=== PATIENT | male | born 1960 | race Caucasian/White ===

== ENCOUNTER 2017-08-27 11:35 | Outpatient (CLI) | payer OTHER ==
[~2017-08-27 11:35] MED LIST: CIPRO500 MG/5 M PO; MOTRIN600 MG PO
== END 2017-08-27 11:48 | disposition home or self-care (01) ==
LOC: LAB 11:35
DX: R21 Rash and other nonspecific skin eruption (principal); Z13.0 Encounter for screening for diseases of the blood and blood-forming organs and certain disorders involving the immune mechanism; Z13.1 Encounter for screening for diabetes mellitus; Z13.29 Encounter for screening for other suspected endocrine disorder; Z12.5 Encounter for screening for malignant neoplasm of prostate; Z12.11 Encounter for screening for malignant neoplasm of colon

== ENCOUNTER → 2017-08-31 16:57 | Outpatient (CLI) | payer OTHER | END | disposition home or self-care (01) | LOC: LAB 16:57 | DX: R21 Rash and other nonspecific skin eruption (principal); Z13.1 Encounter for screening for diabetes mellitus; Z13.29 Encounter for screening for other suspected endocrine disorder; Z12.5 Encounter for screening for malignant neoplasm of prostate; Z12.11 Encounter for screening for malignant neoplasm of colon ==

== ENCOUNTER 2018-01-23 12:26 | Outpatient (CLI) | payer OTHER | END 2018-01-23 12:35 | disposition home or self-care (01) | LOC: RAD 12:26 | DX: M54.5 Low back pain (principal) ==

== ENCOUNTER 2018-07-03 13:21 | Outpatient (CLI) | payer OTHER | END 2018-07-03 13:35 | disposition home or self-care (01) | LOC: LAB 13:21 | DX: Z13.0 Encounter for screening for diseases of the blood and blood-forming organs and certain disorders involving the immune mechanism (principal); Z11.4 Encounter for screening for human immunodeficiency virus [HIV] ==

== ENCOUNTER 2018-10-15 14:49 | Outpatient (CLI) | payer OTHER | END 2018-10-15 15:04 | disposition home or self-care (01) | LOC: LAB 14:49 | DX: R21 Rash and other nonspecific skin eruption (principal); J30.89 Other allergic rhinitis; K90.0 Celiac disease ==

== ENCOUNTER 2020-01-05 14:05 | Emergency (ER) | payer OTHER ==
[~2020-01-05] VITALS: Ht 170.2 cm; Wt 83.9 kg
== END 2020-01-05 19:05 | disposition home or self-care (01) ==
LOC: ER 14:05
DX: K64.8 Other hemorrhoids (principal)

== ENCOUNTER 2020-02-09 06:53 | Day surgery (SDC) | payer OTHER | END 2020-02-09 11:10 | disposition home or self-care (01) | LOC: AMB-ENDOS 06:53 | PROVIDERS: ATTEND Surgery | DX: K62.89 Other specified diseases of anus and rectum (principal); Z20.828 Contact with and (suspected) exposure to other viral communicable diseases ==

== ENCOUNTER 2020-02-13 06:10 | Day surgery (SDC) | payer OTHER ==
[2020-02-13] MEDS ORDERED: PERCOCET 5-3251 EACH PO (08:38)
[2020-02-13] MEDS ORDERED: COLACE100 MG PO (08:38)
[2020-02-13] MEDS ORDERED: NEURONTIN300 MG PO (08:38)
== END 2020-02-13 15:50 | disposition home or self-care (01) ==
LOC: CIR.AMB 06:10
PROVIDERS: ATTEND Surgery
DX: K62.89 Other specified diseases of anus and rectum (principal); Z20.828 Contact with and (suspected) exposure to other viral communicable diseases

== ENCOUNTER → 2021-03-17 11:17 | Outpatient (CLI) | payer OTHER ==
[~2021-03-17 11:17] MED LIST changes: +COLACE100 MG PO; +NEURONTIN300 MG PO; +PERCOCET 5-3251 EACH PO
== END | disposition home or self-care (01) ==
LOC: LAB 11:17
PROVIDERS: ATTEND Specialist
DX: Z13.1 Encounter for screening for diabetes mellitus (principal); Z13.220 Encounter for screening for lipoid disorders; Z12.5 Encounter for screening for malignant neoplasm of prostate; Z12.11 Encounter for screening for malignant neoplasm of colon

== ENCOUNTER 2021-03-21 13:37 | Outpatient (CLI) | payer OTHER | END 2021-03-21 13:38 | disposition home or self-care (01) | LOC: LAB 13:37 | PROVIDERS: ATTEND Specialist | DX: Z12.11 Encounter for screening for malignant neoplasm of colon (principal); Z13.1 Encounter for screening for diabetes mellitus; Z13.220 Encounter for screening for lipoid disorders; Z13.29 Encounter for screening for other suspected endocrine disorder; Z12.5 Encounter for screening for malignant neoplasm of prostate ==

== ENCOUNTER 2022-05-26 19:17 | Emergency (ER) | payer OTHER ==
[~2022-05-26] VITALS: Ht 170.2 cm; Wt 86.2 kg
[2022-05-26] MEDS ORDERED: KETO10TA2 PO (22:22)
== END 2022-05-26 22:34 | disposition home or self-care (01) ==
LOC: ER 19:17
DX: S52.502A Unspecified fracture of the lower end of left radius, initial encounter for closed fracture (principal); W18.30XA Fall on same level, unspecified, initial encounter; Y93.9 Activity, unspecified; Y92.018 Other place in single-family (private) house as the place of occurrence of the external cause; Y99.9 Unspecified external cause status

== ENCOUNTER 2022-05-29 12:33 | Outpatient (CLI) | payer OTHER ==
[~2022-05-29 12:33] MED LIST changes: +KETO10TA2 PO
== END 2022-05-29 12:39 | disposition home or self-care (01) ==
LOC: RAD 12:33
PROVIDERS: ATTEND Orthopaedic Surgery
DX: S52.502A Unspecified fracture of the lower end of left radius, initial encounter for closed fracture (principal)

== ENCOUNTER 2022-06-06 11:15 | Outpatient (CLI) | payer OTHER | END 2022-06-06 13:26 | disposition home or self-care (01) | LOC: RAD 11:15 | PROVIDERS: ATTEND Orthopaedic Surgery | DX: S52.502A Unspecified fracture of the lower end of left radius, initial encounter for closed fracture (principal) ==

== ENCOUNTER 2022-06-15 09:38 | Outpatient (CLI) | payer OTHER | END 2022-06-15 09:50 | disposition home or self-care (01) | LOC: RAD 09:38 | PROVIDERS: ATTEND Orthopaedic Surgery | DX: S52.502A Unspecified fracture of the lower end of left radius, initial encounter for closed fracture (principal) ==

== ENCOUNTER 2022-07-04 10:45 | Outpatient (CLI) | payer OTHER | END 2022-07-04 10:52 | disposition home or self-care (01) | LOC: RAD 10:45 | PROVIDERS: ATTEND Orthopaedic Surgery | DX: S52.502A Unspecified fracture of the lower end of left radius, initial encounter for closed fracture (principal) ==

== ENCOUNTER 2022-08-14 14:18 | Outpatient (CLI) | payer OTHER | END 2022-08-14 14:30 | disposition home or self-care (01) | LOC: RAD 14:18 | PROVIDERS: ATTEND Orthopaedic Surgery | DX: S52.532D Colles' fracture of left radius, subsequent encounter for closed fracture with routine healing (principal) ==

== ENCOUNTER 2022-08-15 09:18 | Outpatient (CLI) | payer OTHER | END 2022-08-15 09:25 | disposition home or self-care (01) | LOC: MRI 09:18 | PROVIDERS: ATTEND Orthopaedic Surgery | DX: M25.512 Pain in left shoulder (principal) | CPT/HCPCS: 73221 ==

== ENCOUNTER 2022-09-26 12:53 | Outpatient (CLI) | payer OTHER | END 2022-09-26 13:03 | disposition home or self-care (01) | LOC: RAD 12:53 | PROVIDERS: ATTEND Orthopaedic Surgery | DX: S52.532D Colles' fracture of left radius, subsequent encounter for closed fracture with routine healing (principal) ==